=== PATIENT | female | born 1930 | race Caucasian/White ===

== ENCOUNTER 2016-08-22 09:40 | Inpatient (IN) | payer OTHER, MEDICAID ==
--- NOTE | 2016-08-22 10:41 | CPEKG ---
Heart Rate: 67 RR Interval: 896 P-R Interval: 216 QRSD Interval: 120 QT Interval: 428 QTC Interval: 452 P Gowen: 42 QRS Gowen: -60 T Wave Gowen: 49 EKG Severity - ABNORMAL ECG - EKG Impression: SINUS RHYTHM EKG Impression: PROBABLE LEFT ATRIAL ABNORMALITY EKG Impression: INCOMPLETE LEFT BUNDLE BRANCH BLOCK EKG Impression: LEFT VENTRICULAR HYPERTROPHY Electronically Signed By: Gemma Mclaughlin 23-Aug-2016 22:31:52
[2016-08-22 11:45] LABS: % IMMATURE GRANULYOCYTES 0.4 % (0.0-1.1); ABSOLUTE IMMATURE GRANULOCYTES 0.02 10^3/uL (0.00-0.10); ADD DIFF? NO; ADD MORPH? NO; ADD SCAN? NO; ATYPICAL LYMPHOCYTE FLAG 0 (0-99); FRAGMENT RBC FLAG 0 (0-99); HEMATOCRIT 49.2 % (38.0-47.0); HEMOGLOBIN 15.3 g/dL (12.6-16.3); LEFT SHIFT FLG 0 (0-99); LIPEMIA HEMOLYSIS FLAG 80 (0-99); MEAN CELL HEMOGLOBIN 28.8 pg (27.9-34.1); MEAN CELL HEMOGLOBIN CONCENTR. 31.1 g/dL (32.4-36.7); MEAN CELL VOLUME 92.7 fL (81.5-99.8); MEAN PLATELET VOLUME 9.5 fL (8.7-11.7); PLATELET CLUMPS FLAG 0 (0-99); PLATELET COUNT 266 10^3/uL (150-400); RED BLOOD CELL COUNT 5.31 10^6/uL (4.18-5.33); RED CELL DISTRIBUTION WIDTH 14.6 % (11.5-15.2)
[2016-08-22 11:49] LABS: ANION GAP 7 mEq/L (8-16); CALCIUM 9.1 mg/dL (8.5-10.4); CARBON DIOXIDE 29 mEq/l (22-31); CHLORIDE 104 mEq/L (97-110); CREATININE 0.6 mg/dL (0.6-1.0); GLOMERULAR FILTRATION RATE > 60; GLUCOSE 141 mg/dL (70-100); POTASSIUM 4.1 mEq/L (3.5-5.2); SODIUM 140 mEq/L (134-144)
--- NOTE | 2016-08-22 12:33 | EDPHY ---
H & P Stated Complaint: confusion & near-syncope Time Seen by Provider: 08/22/16 11:36 HPI/ROS: CHIEF COMPLAINT: fatigue, increased confusion HISTORY OF PRESENT ILLNESS: 85-year-old female with history of advanced Alzheimer's presents to the emergency department with her daughter who reports a 2 day history of increased fatigue and confusion. Patient lives at home with her daughter. Her daughter reports 3 syncopal episodes within 20 minutes yesterday while eating lunch. She was eating a sandwich and dropped her sandwich and fell over on the couch 3 different times this lasted just a few seconds. She was acting appropriate the rest of yesterday. This morning she was more difficult to arouse and unsteady on her feet. Patient has a history of diabetes that is diet controlled. She takes 0.5 mg of lorazepam twice daily and 1 month ago another dose of 0.25 mg in the middle of the day was added due to agitation. Daughter reports no cough, nasal congestion or complaints from the patient. REVIEW OF SYSTEMS: A comprehensive 10 point review of systems is otherwise negative aside from elements mentioned in the history of present illness. Source: Patient, Family Exam Limitations: Clinical condition - Personal History Current Tetanus/Diphtheria Vaccine: Yes Current Tetanus Diphtheria and Acellular Pertussis (TDAP): Yes - Medical/Surgical History Hx Asthma: No Hx Chronic Respiratory Disease: No Hx Diabetes: Yes Hx Cardiac Disease: No Hx Renal Disease: No Hx Cirrhosis: No Hx Alcoholism: No Hx HIV/AIDS: No Hx Splenectomy or Spleen Trauma: No Other PMH: DNR, alzheimer's dementia, DM2 - Social History Smoking Status: Never smoked - Physical Exam Exam: Physical Exam Gen: Asleep, easily aroused HEENT: PERRL, moist mucous membranes NECK: no meningismus CV: regular rate and regular rhythm PULM: CTAB, no wheezes ABDOMEN: Obese, soft, non tender to palpation, BS present BACK: No CVA tenderness NEURO: Follows commands, no facial asymmetry, moves all extremities EXTREMITIES: normal appearing SKIN: no rash or break in skin on exposed skin Constitutional: Initial Vital Signs Temperature (C) 36.8 C 08/22/16 09:44 Heart Rate 77 08/22/16 09:44 Respiratory Rate 16 08/22/16 09:44 Blood Pressure 147/79 H 08/22/16 09:44 O2 Sat (%) 85 L 08/22/16 09:44 O2 Delivery Mode Nasal Cannula O2 (L/minute) 2 Allergies/Adverse Reactions: No Known Allergies Allergy (Unverified 08/22/16 09:51) Home Medications: Medication Instructions Recorded Citalopram [CeleXA] 20 mg PO DAILY@08/22/16 Docusate Sodium [Colace 100 MG (*)] 100 mg PO DAILY 08/22/16 LORazepam [Ativan (*)] 0.25 mg PO DAILY@08/22/16 LORazepam [Ativan (*)] 0.5 mg PO HS 08/22/16 Melatonin/Pyridoxine HCl (B6) 1 each PO HS 08/22/16 [Melatonin 10 mg Tablet] Medical Decision Making - Diagnostics Imaging Results: Imaging Impressions Chest X-Ray 08/22/16 11:36 Impression: 1. Minimal cardiomegaly. No failure or pneumonia. 2. Chronic airways disease and probable minimal bibasilar interstitial lung disease. Head CT 08/22/16 12:29 Impression: Moderately advanced cerebral cortical atrophy, with no acute intracranial abnormality identified. If there is further clinical concern regarding the patient's symptoms, MR imaging is suggested, if not otherwise contraindicated. Findings were discussed with Niurka Britt NP at 13:02, on 08/22/2016. ED Course/Re-evaluation: 85-year-old female presents with hypoxia and encephalopathy. IV established, labs obtained, EKG , CT brain and chest x-ray ordered. Labs are unremarkable, EKG shows normal sinus rhythm, rate 67, left axis deviation, first-degree AV block, no comparison. Chest x-ray shows no evidence of pneumonia. CT brain with nothing acute. Urinalysis positive with nitrates and leukocytes. Will treat with ceftriaxone and admit to hospitalist. - Data Points Laboratory Results: Laboratory Results 08/22/16 10:41 08/22/16 10:41 08/22/16 08/22/16 08/22/16 13:45 10:41 10:41 WBC RBC Hgb Hct MCV MCH MCHC RDW Plt Count MPV Neut % (Auto) Lymph % (Auto) Nuckolls % (Auto) Eos % (Auto) Baso % (Auto) Nucleat RBC Rel Count Absolute Neuts (auto) Absolute Lymphs (auto) Absolute Monos (auto) Absolute Eos (auto) Absolute Basos (auto) Absolute Nucleated RBC Immature Gran % Immature Gran # Sodium 140 mEq/L mEq/L (134-144) Potassium 4.1 mEq/L mEq/L (3.5-5.2) Chloride 104 mEq/L mEq/L (97-110) Carbon Dioxide 29 mEq/l mEq/l (22-31) Anion Gap 7 mEq/L L mEq/L (8-16) BUN 19 mg/dL mg/dL (7-23) Creatinine 0.6 mg/dL mg/dL (0.6-1.0) Estimated GFR > 60 Glucose 141 mg/dL H mg/dL (70-100) Calcium 9.1 mg/dL mg/dL (8.5-10.4) Troponin I < 0.012 ng/mL ng/mL (0-0.034) Urine Color JONH Urine Appearance HAZY Urine pH 5.0 (5.0-7.5) Ur Specific Dwarf 1.005 (1.002-1.030) Urine Protein NEGATIVE (NEGATIVE) Urine Ketones NEGATIVE (NEGATIVE) Urine Blood 1+ H (NEGATIVE) Urine Nitrate POSITIVE H (NEGATIVE) Urine Bilirubin NEGATIVE (NEGATIVE) Urine Urobilinogen 2.0 EU H EU (0.2-1.0) Ur Leukocyte Esterase 1+ H (NEGATIVE) Urine RBC 1-3 /hpf /hpf (0-3) Urine WBC 5-10 /hpf H /hpf (0-3) Ur Epithelial Cells TRACE /lpf /lpf (NONE-1+) Urine Bacteria 4+ /hpf H /hpf (NONE SEEN) Urine Glucose NEGATIVE (NEGATIVE) 08/22/16 10:41 WBC 5.57 10^3/uL 10^3/uL (3.80-9.50) RBC 5.31 10^6/uL 10^6/uL (4.18-5.33) Hgb 15.3 g/dL g/dL (12.6-16.3) Hct 49.2 % H % (38.0-47.0) MCV 92.7 fL fL (81.5-99.8) MCH 28.8 pg pg (27.9-34.1) MCHC 31.1 g/dL L g/dL (32.4-36.7) RDW 14.6 % % (11.5-15.2) Plt Count 266 10^3/uL 10^3/uL (150-400) MPV 9.5 fL fL (8.7-11.7) Neut % (Auto) 67.0 % % (39.3-74.2) Lymph % (Auto) 23.5 % % (15.0-45.0) Nuckolls % (Auto) 6.6 % % (4.5-13.0) Eos % (Auto) 2.0 % % (0.6-7.6) Baso % (Auto) 0.5 % % (0.3-1.7) Nucleat RBC Rel Count 0.0 % % (0.0-0.2) Absolute Neuts (auto) 3.73 10^3/uL 10^3/uL (1.70-6.50) Absolute Lymphs (auto) 1.31 10^3/uL 10^3/uL (1.00-3.00) Absolute Monos (auto) 0.37 10^3/uL 10^3/uL (0.30-0.80) Absolute Eos (auto) 0.11 10^3/uL 10^3/uL (0.03-0.40) Absolute Basos (auto) 0.03 10^3/uL 10^3/uL (0.02-0.10) Absolute Nucleated RBC 0.00 10^3/uL 10^3/uL (0-0.01) Immature Gran % 0.4 % % (0.0-1.1) Immature Gran # 0.02 10^3/uL 10^3/uL (0.00-0.10) Sodium Potassium Chloride Carbon Dioxide Anion Gap BUN Creatinine Estimated GFR Glucose Calcium Troponin I Urine Color Urine Appearance Urine pH Ur Specific Dwarf Urine Protein Urine Ketones Urine Blood Urine Nitrate Urine Bilirubin Urine Urobilinogen Ur Leukocyte Esterase Urine RBC Urine WBC Ur Epithelial Cells Urine Bacteria Urine Glucose Medications Given: Discontinued Medications Sodium Chloride (Ns) 500 mls @ 1,500 mls/hr IV ONCE ONE Stop: 08/22/16 14:54 Last Admin: 08/22/16 15:32 Dose: 500 mls Ceftriaxone Sodium/Dextrose (Rocephin 1 Gm (Premix)) 50 mls @ 100 mls/hr IV EDNOW ONE PRN Reason: Protocol Stop: 08/22/16 15:15 Last Admin: 08/22/16 15:33 Dose: 50 mls Lorazepam (Ativan) 0.25 mg PO ONCE ONE Stop: 08/22/16 15:34 Last Admin: 08/22/16 15:46 Dose: 0.25 mg Departure - Departure Disposition: [facility] Inpatient Acute Clinical Impression: Encephalopathy acute Urinary tract infection Qualifiers: Urinary tract infection type: site unspecified Hematuria presence: without hematuria Qualified Code(s): N39.0 - Urinary tract infection, site not specified Condition: Fair
[2016-08-22] MEDS ORDERED: ONDANSETRON DISINTEGRATING 4 MG TAB PO PRN (14:35)
[2016-08-22] MEDS ORDERED: NS 500 ML IV ONE (14:35)
[2016-08-22] MEDS ORDERED: ONDANSETRON 4 MG/2 ML VIAL IVP PRN (14:35)
[2016-08-22] MEDS ORDERED: ALBUTEROL 3 ML DEYVIAL IH PRN (14:35)
[2016-08-22] MEDS ORDERED: ACETAMINOPHEN 325 MG TAB PO PRN (14:35)
[2016-08-22 14:48] LABS: COLOR AMBER
[2016-08-22 14:49] LABS: NITRITE,URINE POSITIVE (NEGATIVE)
[2016-08-22 14:50] LABS: LEUKOCYTE ESTERASE,URINE 1+ (NEGATIVE)
[2016-08-22 15:11] LABS: BACTERIA 4+ /hpf (NONE SEEN)
[2016-08-22] MEDS ORDERED: LORazepam 0.5 MG TAB PO ONE (15:33)
[2016-08-22] MEDS ORDERED: LORazepam 0.5 MG TAB ONE (15:34)
--- NOTE | 2016-08-22 16:46 | GHP ---
[f rep st] HISTORY AND PHYSICAL DATE OF ADMISSION: 08/22/2016 CHIEF COMPLAINT: Syncopal episode. 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 Patient is described by her daughter, who is her full-time rapier insertion loom fixer as quite vibrant, interactive , appropriately and able to complete guided tasks without complication, and she notes in the course of the last few days that she has been more lethargic, less able to appropriately interact at her ow n level, and has had several episodes of these slumping over, losing consciousness events, that reso lve spontaneously. The patient is not able to give an entirely thorough review either to the daught er or me but has not been complaining of chest pain, vision changes, shortness of breath, abdominal pain. Her bowel habits have been normal. She has not had blood in her urine. The daughter does re port that she has had a couple of urinary accidents in the evening in the days preceding this presen tation, which is unusual for her. Denies any blood in her urine. The patient denies any fevers, na usea, or vomiting in the home. No known sick contacts. Per the daughter's report, she is quite hea lthy and typically is able to avoid even the colds and small flus that run through the house. PAST MEDICAL HISTORY: 1. Breast cancer, status post mastectomy. 2. Previous diagnosis of diabetes, now diet controlled. 3. History of a heart attack in 1991. Has not had symptoms since and has not been on cardiac medic ations. SOCIAL HISTORY: Negative for tobacco, alcohol, or illicit drugs. ADVANCED DIRECTIVES: The patient is Do Not Resuscitate. Her daughter is her medical decision maker . REVIEW OF SYSTEMS: A 10-point review of systems is negative with the exception of that reported in the HPI. PHYSICAL EXAMINATION: VITAL SIGNS: Blood pressure 119/90, heart rate 71, respiratory rate 18, 90% on room air, 36.4. GENERAL: This is an obese, elderly female, sitting in bed. HEENT: Notable for dry mucous membranes. Eye exam is negative for any icterus. CARDIAC: Patient is regular rate and rhythm. PULMONARY: Patient has shallow breathing pattern with diminished breath sounds at bilater al bases. No wheezing or rhonchi are appreciated. GASTROINTESTINAL: Positive bowel sounds. Abdom en soft and nontender in all 4 quadrants. MUSCULOSKELETAL: Negative for any lower extremity edema. SKIN: Negative for any rashes. NEUROLOGIC: Patient is alert and oriented x0. PSYCHIATRIC: She seems frightened and confused, but cooperative. DATA: White count 5.5, hematocrit 49.2, platelet count of 266, creatinine 0.6. Troponin less than 0.012. Urinalysis shows positive blood, positive nitrites, positive leukocyte esterase, 5-10 white blood cells, and 4+ bacteria. Noncontrast CT of the head, which I personally reviewed and interpret ed, shows no acute strokes, bleeds, or trauma. Atrophy is noted by Radiology. Her EKG, which I per sonally reviewed and interpreted, shows sinus rhythm, left axis deviation, interventricular conducti on delay, with no acute ST-T changes. ASSESSMENT AND PLAN: This is an 85-year-old female, presenting with syncopal episodes and encephalo michelle. 1. Acute encephalopathy, suspect secondary to underlying urinary tract infection. Will treat with empiric IV antibiotics and follow the patient's mental status with coordination of day care home mother apy, physical therapy, and speech therapy. 2. Syncopal episodes. Again, suspect likely related to the patient's acute urinary tract infection . Will treat with IV fluid resuscitation and follow the patient's vital signs. I do not think she needs telemetry monitoring at this time. 3. Described swallowing dysfunction. Daughter is noting the patient is cheeking her food frequentl y. We will consult Speech Therapy for assistance. 4. History of coronary artery disease. The patient's troponin is negative. She is not complaining of chest pain. EKG shows no acute changes. Will not add any medications at this time and again do not think the patient warranted telemetry monitoring. 5. Severe advanced dementia. Will continue the patient's home medications, which include an antide pressant, as well as 2 small doses of Ativan for sundowning symptoms. Will monitor her closely and try to obtain an activity belt to help keep her distracted from pulling out her IV. 6. Prophylaxis with Lovenox. DIET: Regular. DISPOSITION: I expect greater than 2 midnights as the patient is quite elderly with dementia, prese nting with encephalopathy and acute infection I have discussed the case with the emergency room phys nii, and patient will be triaged to the medical-surgical floor for care. /[id number]/MODL
[2016-08-22] MEDS: IPRATROPIUM/ALBUTEROL 3 ML DEYVIAL IH SCH ×2 (19:40→21:37)
[2016-08-22] MEDS: LORazepam 0.5 MG TAB PO SCH (20:57)
[2016-08-22] MEDS ORDERED: Melatonin/Pyridoxine Hcl (B6) [Melatonin 10 Mg Tablet] 1 EACH PO SCH (21:00)
[2016-08-22] MEDS: MELATONIN 3 MG TAB PO SCH (21:54)
[2016-08-23] MEDS: ENOXAPARIN 40 MG/0.4 ML SYR SC SCH (08:37)
[2016-08-23] MEDS: LORazepam 0.5 MG TAB PO SCH ×3 (08:37→21:10)
[2016-08-23] MEDS: DOCUSATE SODIUM 100 MG CAP PO SCH (08:37)
[2016-08-23] MEDS: CITALOPRAM 20 MG TAB PO SCH ×2 (08:37→15:36)
[2016-08-23 09:25] LABS: ANION GAP 7 mEq/L (8-16); CALCIUM 9.2 mg/dL (8.5-10.4); CARBON DIOXIDE 27 mEq/l (22-31); CHLORIDE 106 mEq/L (97-110); CREATININE 0.5 mg/dL (0.6-1.0); GLOMERULAR FILTRATION RATE > 60; GLUCOSE 121 mg/dL (70-100); POTASSIUM 4.5 mEq/L (3.5-5.2); SODIUM 140 mEq/L (134-144)
--- NOTE | 2016-08-23 10:31 | HOSPPROG ---
Hospitalist Progress Note Assessment/Plan: Acute encephalopathy likely secondary to UTI UTI - UCx growing >100K GNR's. No BCx's on arrival, but afebrile and WBC's normal. Pt keeps pulling out IV. Will change to oral Levaquin. Follow Cx data. Swallow dysfunction - speech / swallow eval planned Dementia - advanced DNR Subjective: Pt is demented, confused. Family reports this is her baseline. No fevers. Objective: Vital Signs Temp Pulse Resp BP Pulse Ox 36.9 C 63 17 130/80 H 87 L 08/23/16 07:31 08/23/16 07:31 08/23/16 07:31 08/23/16 07:31 08/23/16 09:17 Laboratory Results 08/23/16 08:14 08/22/16 08/23/16 08/24/16 05:59 05:59 05:59 Intake Total 550 Balance 550 - Physical Exam Constitutional: no apparent distress Eyes: PERRL Ears, Nose, Mouth, Throat: moist mucous membranes Cardiovascular: regular rate and rhythym Respiratory: no respiratory distress Gastrointestinal: normoactive bowel sounds, soft, non-tender abdomen Skin: warm Musculoskeletal: full muscle strength Psychiatric: encephalopathic ICD10 Worksheet Patient Problems: Problems Problem Status Onset Encephalopathy acute Acute Urinary tract infection Acute
[2016-08-23] MEDS ORDERED: risperiDONE 0.5 MG TAB PO PRN (16:16)
[2016-08-23 19:56] VITALS: BP 131/80
[2016-08-23] MEDS: MELATONIN 3 MG TAB PO SCH (21:10)
[2016-08-24] MEDS: ENOXAPARIN 40 MG/0.4 ML SYR SC SCH (10:20)
[2016-08-24] MEDS: LORazepam 0.5 MG TAB PO SCH ×2 (10:20→14:25)
[2016-08-24] MEDS: DOCUSATE SODIUM 100 MG CAP PO SCH (10:20)
[2016-08-24] MEDS: CITALOPRAM 20 MG TAB PO SCH ×2 (10:24→14:25)
[2016-08-24 10:33] VITALS: PULSE 84; RESP 16; TEMP 98.4; O2SAT 85
--- NOTE | 2016-08-24 11:21 | GDS ---
[f rep st] DISCHARGE SUMMARY DISCHARGE DIAGNOSES: 1. Urinary tract infection secondary to pansensitive Escherichia coli. 2. Advanced Alzheimer dementia. HISTORY: For details, please see dictated history and physical dated August 22, 2016. In brief, the gracia blackman is an 85-year-old female with history of advanced Alzheimer's dementia, who presented to the emergency department after a syncopal event. She was found to have urinary tract infection and was admitted to the hospital for further management. HOSPITAL COURSE: Patient is admitted to medical-surgical unit. She was started on IV ceftriaxone; however, the following day she continued to pull out her IVs, thus she transitioned to oral Levaquin . Her urine culture grew greater than 100,000 colony-forming units of E coli, which was pansensitiv e. Given the QT prolongation interaction with Levaquin and Celexa, she will be discharged on oral K eflex to complete a 7-day course. She has remained hemodynamically stable, afebrile, without eviden ce of sepsis. She did require a sitter and underwent PT/OT evaluations, who both recommend home car e with 24-hour supervision. Apparently, the family is caring for her and she does go to an adult da are during the day. DISPOSITION: Patient is discharged home in stable condition. DISCHARGE MEDICATIONS: Please see Plerts for complete updated outpatient medication list. She wi ll continue all outpatient medications as prescribed. New medications on discharge include cephalex in 500 mg p.o. b.i.d., #14, no refills. FOLLOWUP: She should follow up with her primary care physician at [place] within 1 week. /[id number]/MODL
== END 2016-08-24 16:34 | disposition home or self-care (01) | DRG 690 ==
LOC: F1N 18:58
PROVIDERS: ADMIT Hospitalist; ATTEND Hospitalist
DX: N39.0 Urinary tract infection, site not specified (principal); B96.20 Unspecified Escherichia coli [E. coli] as the cause of diseases classified elsewhere; R55 Syncope and collapse; G30.9 Alzheimer's disease, unspecified; F02.80 Dementia in other diseases classified elsewhere, unspecified severity, without behavioral disturbance, psychotic disturbance, mood disturbance, and anxiety; E11.9 Type 2 diabetes mellitus without complications; Z66 Do not resuscitate; Z85.3 Personal history of malignant neoplasm of breast
CPT/HCPCS: 92610-GN; 97162-GP; 97166-GO; J0696; J1650

== ENCOUNTER 2016-10-09 13:22 | Emergency (ER) | payer OTHER, MEDICAID ==
[2016-10-09] MEDS ORDERED: LORazepam 2 MG/ML INJ IVP ONE ×2 (14:01→16:11)
--- NOTE | 2016-10-09 15:21 | EDPHY ---
H & P Stated Complaint: constipation, anxiety Time Seen by Provider: 10/09/16 15:16 HPI/ROS: CHIEF COMPLAINT: Constipation. HISTORY OF PRESENT ILLNESS: The patient is an 86-year-old female with a history of constipation and Alzheimer's who presents with possible abdominal pain and constipation. Patient was at her daycare program and noted by the caregivers to be going to the bathroom multiple times with no success and passing a bowel movement. She was also noted to be diaphoretic and hypertensive. There is no reported history of vomiting. Per the caregiver the family has not mentioned fevers or chills. Patient does not appear to have any urinary complaints. History is obtainable only from the caregiver. Family is not present initially. History severely limited due to dementia. Later in the emergency department course, the patient's family did arrive. They report she does have a long history of having issues with constipation. They deny any other symptoms. No history of falls, fevers, vomiting, diarrhea, or significant appetite abnormalities. REVIEW OF SYSTEMS: Aside from elements discussed in the HPI, a comprehensive 10-point review of systems was reviewed and is negative. PAST MEDICAL HISTORY: Alzheimer's, DM2, osteopenia, osteoarthritis, VA, breast CA, heart murmur, bilateral hearing loss, anxiety. SOCIAL HISTORY: Never smoked, VITAL SIGNS: Reviewed by me GENERAL: Mildly obese, laying on her side. Intermittently uncooperative with the exam. Confused. HEENT: Atraumatic. Eyes: No icterus, no injection. Mouth: moist mucous membranes. No erythema or lesions. Neck: supple with no adenopathy. LUNGS: Clear to auscultation bilaterally, no wheezes, rhonchi or rales. CARDIAC: Regular rate and rhythm, no rubs, murmurs or gallops. ABDOMEN: Soft, no tenderness is appreciated. Nondistended. Normal bowel sounds. BACK: No CVA tenderness. RECTAL: Patient would not cooperate for the exam. EXTREMITIES: No trauma. No edema. Range of motion is normal throughout. NEURO: Alert. Oriented to 0. Does recognize her family members. Unable to answer questions. SKIN: Warm and dry, no rash. PSYCHIATRIC: Intermittently agitated. Portions of this note were transcribed by a medical education manager. I personally performed a history, physical exam, medical decision making, and confirmed accuracy of information the transcribed note. Source: Family, Old records Exam Limitations: Clinical condition - Medical/Surgical History Hx Asthma: No Hx Chronic Respiratory Disease: No Hx Diabetes: Yes Hx Cardiac Disease: No Hx Renal Disease: No Hx Cirrhosis: No Hx Alcoholism: No Hx HIV/AIDS: No Hx Splenectomy or Spleen Trauma: No Other PMH: DNR, alzheimer's dementia, DM2, fungus in groin, obesity, oseopenia, osteoarthritis, VA, breast CA, heart murmur, bilateral hearing loss, anxiety - Social History Smoking Status: Never smoked Constitutional: Initial Vital Signs Temperature (C) 36.4 C 10/09/16 13:34 Heart Rate 98 10/09/16 13:34 Respiratory Rate 17 10/09/16 13:34 Blood Pressure 158/93 H 10/09/16 13:34 O2 Sat (%) 95 10/09/16 13:34 O2 Delivery Mode Room Air Allergies/Adverse Reactions: lisinopril Allergy (Verified 10/09/16 13:33) Home Medications: Medication Instructions Recorded Citalopram [CeleXA 20 MG] 20 mg PO DAILY@08/22/16 Docusate Sodium [Colace 100 MG (*)] 100 mg PO DAILY 08/22/16 LORazepam [Ativan (*)] 0.25 mg PO DAILY@08/22/16 LORazepam [Ativan (*)] 0.5 mg PO HS 08/22/16 Melatonin/Pyridoxine HCl (B6) 1 each PO HS 08/22/16 [Melatonin 10 mg Tablet] Cephalexin [Keflex (*)] 500 mg PO BID #14 cap 08/24/16 Clotrimazole 1% 10/09/16 Nystop 10/09/16 Medical Decision Making - Diagnostics EKG Interpretation: 12-LEAD EKG: Please see the full report in [facility]. My interpretation: Normal sinus rhythm, left bundle branch block. Imaging Results: Xray: Chest x-ray was obtained. I viewed the images myself on the PACS system. My interpretation of the images is: Clear, no pneumonia, no significant cardiomegaly. The radiology interpretation is: Agrees. Xray: Abdominal flat plate was obtained. I viewed the images myself on the PACS system. My interpretation of the images is: Constipation. The radiology interpretation is: Agrees. ED Course/Re-evaluation: 86-year-old female with dementia and previous constipation issues presents with probable constipation. Her video game animator reports that she has seemed to have difficulty going to the bathroom all day and had an episode of diaphoresis and hypertension. An IV was established and labs ordered. Chest x-ray, abdominal x- ray ordered. I have ordered an enema for this patient. X-ray abdomen was obtained. I viewed the images myself on the PACS system. My interpretation of the images is: constipation. The radiologist interpretation is pending at this time. X-ray chest was obtained. I viewed the images myself on the PACS system. My interpretation of the images is: no acute process. The radiologist interpretation is pending at this time. A patient's family presented to the emergency department. With their assistance , the patient was less agitated. Rectal exam reveals significant amount of stool in the rectal vault. I digitally disimpacted the patient. Patient's son marisabel was present in the room during this examination. Following this procedure , the patient did receive an enema. She had a significant amount of stool output. The patient's urine has a few white blood cells present, but no overt signs of infection. Urine was cultured. Patient was discharged in the care of her family in improved condition. I strongly advised them to discuss a regular bowel program with their provider. Again, the patient's urine has been sent for culture we will contact them if the patient requires antibiotics. Differential Diagnosis: Differential diagnoses for the patient's symptom complex was considered including but not limited to electrolyte abnormality, dehydration, constipation , intra-abdominal pathology, urinary tract infection. - Data Points Laboratory Results: Laboratory Results 10/09/16 15:47 10/09/16 15:47 Microbiology Results: MICROBIOLOGY 10/09/16 15:44 Urine,Clean Catch Urine Culture - Final Klebsiella Pneumoniae Ssp Pneu Medications Given: Discontinued Medications Sodium Chloride (Ns) 1,000 mls @ 0 mls/hr IV ONCE ONE; Wide Open PRN Reason: Protocol Stop: 10/09/16 15:36 Last Admin: 10/09/16 16:15 Dose: 1,000 mls Lorazepam (Ativan Injection) 1 mg IVP EDNOW ONE Stop: 10/09/16 14:02 Last Admin: 10/09/16 14:05 Dose: 1 mg Lorazepam (Ativan Injection) 1 mg IVP EDNOW ONE Stop: 10/09/16 16:12 Last Admin: 10/09/16 16:32 Dose: 1 mg Departure - Departure Disposition: Home, Routine, Self-Care Clinical Impression: Possible urinary tract infection Constipation Qualifiers: Constipation type: unspecified constipation type Qualified Code(s): K59.00 - Constipation, unspecified Condition: Good Instructions: Constipation (ED) Additional Instructions: Follow up with your doctor on Thursday for reevaluation. Return for any serious worsening of condition. Referrals: BORGES,UNKNOWN [Other] - As per Instructions Report Scribed for: Mary Crouch Report Scribed by: Aakash Bahena Date of Report: 10/09/16 Time of Report: 15:49
[2016-10-09] MEDS ORDERED: NS 1,000 ML IV ONE (15:35)
[2016-10-09 16:10] LABS: % IMMATURE GRANULYOCYTES 0.4 % (0.0-1.1); ABSOLUTE IMMATURE GRANULOCYTES 0.04 10^3/uL (0.00-0.10); ADD DIFF? NO; ADD MORPH? NO; ADD SCAN? NO; ATYPICAL LYMPHOCYTE FLAG 0 (0-99); FRAGMENT RBC FLAG 0 (0-99); HEMATOCRIT 49.2 % (38.0-47.0); HEMOGLOBIN 15.7 g/dL (12.6-16.3); LEFT SHIFT FLG 0 (0-99); LIPEMIA HEMOLYSIS FLAG 80 (0-99); MEAN CELL HEMOGLOBIN 29.3 pg (27.9-34.1); MEAN CELL HEMOGLOBIN CONCENTR. 31.9 g/dL (32.4-36.7); MEAN PLATELET VOLUME 9.8 fL (8.7-11.7); PLATELET CLUMPS FLAG 0 (0-99); PLATELET COUNT 246 10^3/uL (150-400); RED BLOOD CELL COUNT 5.35 10^6/uL (4.18-5.33); RED CELL DISTRIBUTION WIDTH 14.3 % (11.5-15.2)
[2016-10-09 16:12] LABS: COLOR YELLOW; LEUKOCYTE ESTERASE,URINE 1+ (NEGATIVE); NITRITE,URINE POSITIVE (NEGATIVE)
--- NOTE | 2016-10-09 16:13 | CPEKG ---
Heart Rate: 83 RR Interval: 723 P-R Interval: 220 QRSD Interval: 122 QT Interval: 412 QTC Interval: 485 P Jewett: 59 QRS Jewett: -54 T Wave Jewett: 51 EKG Severity - ABNORMAL ECG - EKG Impression: SINUS RHYTHM EKG Impression: FIRST DEGREE AV BLOCK EKG Impression: LEFT ATRIAL ABNORMALITY EKG Impression: LEFT BUNDLE BRANCH BLOCK EKG Impression: Poor R-wave progression. Consider old anterior myocardial infarction. EKG Impression: No significant change from August 22, 2016 Electronically Signed By: Brendon Cisse 10-Oct-2016 09:48:08
[2016-10-09 16:17] LABS: BACTERIA TRACE /hpf (NONE SEEN); RBC,URINE NONE SEEN /hpf (0-3)
[2016-10-09 16:20] LABS: ALANINE AMINOTRANSFERASE 32 IU/L (9-52); ALBUMIN 4.1 g/dL (3.5-5.0); ALKALINE PHOSPHATASE 115 IU/L (38-126); ANION GAP 11 mEq/L (8-16); ASPARTATE AMINOTRANSFERASE 22 IU/L (14-46); BILIRUBIN,TOTAL 0.5 mg/dL (0.1-1.4); BILIRUBIN-CONJUGATED 0.2 mg/dL (0.0-0.5); BILIRUBIN-UNCONJUGATED 0.3 mg/dL (0.0-1.1); CARBON DIOXIDE 26 mEq/l (22-31); CHLORIDE 106 mEq/L (97-110); CREATININE 0.6 mg/dL (0.6-1.0); GLOMERULAR FILTRATION RATE > 60; GLUCOSE 140 mg/dL (70-100); POTASSIUM 4.1 mEq/L (3.5-5.2); SODIUM 143 mEq/L (134-144); TOTAL PROTEIN 6.8 g/dL (6.3-8.2)
[2016-10-09 16:33] LABS: TROPONIN I < 0.012 ng/mL (0-0.034)
[2016-10-09 19:28] VITALS: BP 130/74; PULSE 80; RESP 14; TEMP 98.4; O2SAT 94
== END 2016-10-09 19:27 | disposition home or self-care (01) ==
LOC: EDUNIT#
DX: K59.00 Constipation, unspecified (principal); E86.9 Volume depletion, unspecified; E11.9 Type 2 diabetes mellitus without complications; I25.2 Old myocardial infarction; Z85.3 Personal history of malignant neoplasm of breast
CPT/HCPCS: 71010; 74000; 93005; 96361; 96374; 96376; 99285; J2060

== ENCOUNTER 2017-04-09 13:09 | Emergency (ER) | payer OTHER, MEDICAID ==
[2017-04-09 13:16] VITALS: RESP 18
--- NOTE | 2017-04-09 13:36 | EDPHY ---
H & P Stated Complaint: constipation Time Seen by Provider: 04/09/17 13:32 HPI/ROS: CHIEF COMPLAINT: Constipation HISTORY OF PRESENT ILLNESS: The patient is a very pleasant 86-year-old female who presents the emergency department with her family with a chief complaint of constipation. They have tried MiraLax and several enemas at home. They have not been successful because the patient has a rectal impaction. The patient denies any fever or significant abdominal pain. She has not been vomiting. The patient was seen in the emergency department last year with a similar event and was successfully disimpacted and treated with an enema. The patient denies any history of fall, trauma, fever, cough, dysuria or other acute complaints. REVIEW OF SYSTEMS: A comprehensive 10 point review of systems is otherwise negative aside from elements mentioned in the history of present illness. Source: Patient - Personal History Current Tetanus/Diphtheria Vaccine: Yes - Medical/Surgical History Hx Asthma: No Hx Chronic Respiratory Disease: No Hx Diabetes: Yes Hx Cardiac Disease: No Hx Renal Disease: No Hx Cirrhosis: No Hx Alcoholism: No Hx HIV/AIDS: No Hx Splenectomy or Spleen Trauma: No Other PMH: DNR, alzheimer's dementia, DM2, fungus in groin, obesity, oseopenia, osteoarthritis, MT, breast CA, heart murmur, bilateral hearing loss, anxiety - Social History Smoking Status: Never smoked - Physical Exam Exam: General Appearance: Alert, no distress Eyes: Pupils equal and round no pallor or injection ENT, Mouth: Mucous membranes moist Respiratory: There are no retractions, lungs are clear to auscultation Cardiovascular: Regular rate and rhythm Gastrointestinal: Abdomen is soft and nontender, no masses, bowel sounds normal Rectal examination: Scant amount of stool noted on rectal vault Neurological: A&O, normal motor function, normal sensory exam, normal cranial nerves Skin: Warm and dry, no rashes Musculoskeletal: Neck is supple nontender Constitutional: Initial Vital Signs Temperature (C) 36.8 C 04/09/17 13:13 Heart Rate 75 04/09/17 13:13 Respiratory Rate 18 04/09/17 13:13 Blood Pressure 137/79 H 04/09/17 13:13 O2 Sat (%) 90 L 04/09/17 13:13 O2 Delivery Mode Room Air Allergies/Adverse Reactions: lisinopril Allergy (Verified 01/11/18 13:10) Home Medications: Medication Instructions Recorded Citalopram [CeleXA 20 MG] 20 mg PO DAILY@08/22/16 Docusate Sodium [Colace 100 MG (*)] 100 mg PO DAILY 08/22/16 LORazepam [Ativan (*)] 0.25 mg PO DAILY@08/22/16 LORazepam [Ativan (*)] 0.5 mg PO HS 08/22/16 Melatonin/Pyridoxine HCl (B6) 1 each PO HS 08/22/16 [Melatonin 10 mg Tablet] Medical Decision Making ED Course/Re-evaluation: The patient presents the emergency department with complaints of constipation. The patient was noted to have a mild amount of stool in her rectum. Her abdomen was soft and nontender and she was in no acute distress. The patient received a soapsuds enema in the emergency department and ultimately had a large bowel movement. She was kept in the emergency department and observed for several hours. She denies any abdominal pain at 5:00 p.m. and like to be discharged home. The family is comfortable taking her home. They will incorporate milk of magnesia in addition to her regular MiraLax as needed. Differential Diagnosis: Differential diagnosis considered includes constipation, impaction, obstruction Departure - Departure Disposition: Home, Routine, Self-Care Clinical Impression: Constipation Condition: Good Instructions: Constipation (ED) Additional Instructions: 1. Milk of magnesia as needed for constipation 2. Return to ED for any pain, vomiting or other concerns. Referrals: [facility] [Other] - As per Instructions
[2017-04-09 17:31] VITALS: BP 148/74; PULSE 77; TEMP 97.9; O2SAT 92
== END 2017-04-09 17:31 | disposition home or self-care (01) ==
DX: K59.00 Constipation, unspecified (principal); E11.9 Type 2 diabetes mellitus without complications; I25.2 Old myocardial infarction; Z85.3 Personal history of malignant neoplasm of breast

== ENCOUNTER 2017-06-30 17:50 | Emergency (ER) | payer OTHER, MEDICAID | END 2017-06-30 18:20 | disposition left against medical advice (07) | DX: Z53.21 Procedure and treatment not carried out due to patient leaving prior to being seen by health care provider (principal) ==